=== PATIENT | male | born 1995 | race Caucasian/White ===

== ENCOUNTER 2020-06-26 12:31 | Emergency (ER) | payer OTHER ==
[~2020-06-26] VITALS: Ht 180.3 cm; Wt 65.8 kg
[~2020-06-26 12:31] MED LIST: HYDROCODON-ACE1 EAC7 PO; IBUPROFEN 800800 MG PO; NOHOMEMEDICATIONS; XANAX 0.25 MG0.25 MG PO
[2020-06-26] MEDS ORDERED: HYDROCODON-ACE1 EAC7 PO (18:00)
[2020-06-26] MEDS ORDERED: KEPPRA XR750 MG PO (18:00)
[2020-06-26 18:05] VITALS: BP 141/78
== END 2020-06-26 18:06 | disposition home or self-care (01) ==
LOC: ER 12:31
DX: S43.034A Inferior dislocation of right humerus, initial encounter (principal); R51.9 Headache, unspecified; Z79.899 Other long term (current) drug therapy; W19.XXXA Unspecified fall, initial encounter; Y93.89 Activity, other specified; Y92.89 Other specified places as the place of occurrence of the external cause; Y99.8 Other external cause status

== ENCOUNTER 2020-08-09 21:49 | Emergency (ER) | payer OTHER ==
[~2020-08-09] VITALS: Ht 180.3 cm; Wt 68.0 kg
[~2020-08-09 21:49] MED LIST changes: +KEPPRA XR750 MG PO
[2020-08-09 23:45] VITALS: BP 106/71
== END 2020-08-09 23:45 | disposition home or self-care (01) ==
LOC: ER 21:49
DX: M24.411 Recurrent dislocation, right shoulder (principal); Z79.899 Other long term (current) drug therapy; W06.XXXA Fall from bed, initial encounter; Y93.89 Activity, other specified; Y92.89 Other specified places as the place of occurrence of the external cause; Y99.8 Other external cause status

== ENCOUNTER 2020-09-04 07:49 | Emergency (ER) | payer OTHER ==
[~2020-09-04] VITALS: Ht 180.3 cm; Wt 68.0 kg
[2020-09-04] MEDS ORDERED: XANAX1 MG PO (07:59)
[2020-09-04] MEDS ORDERED: KEPPRA 500 MG500 MG PO (09:21)
[2020-09-04] MEDS ORDERED: NORCO5 PO (09:21)
[2020-09-04 09:25] VITALS: BP 144/98
== END 2020-09-04 09:25 | disposition home or self-care (01) ==
LOC: ER 07:49
DX: S43.004A Unspecified dislocation of right shoulder joint, initial encounter (principal); F17.210 Nicotine dependence, cigarettes, uncomplicated; Z79.899 Other long term (current) drug therapy; X58.XXXA Exposure to other specified factors, initial encounter; Y93.89 Activity, other specified; Y92.098 Other place in other non-institutional residence as the place of occurrence of the external cause; Y99.8 Other external cause status

== ENCOUNTER 2020-10-30 12:59 | Emergency (ER) | payer BC ==
[~2020-10-30] VITALS: Ht 177.8 cm; Wt 84.8 kg
[~2020-10-30 12:59] MED LIST changes: +KEPPRA 500 MG500 MG PO; +NORCO5 PO; +XANAX1 MG PO
[2020-10-30 13:20] VITALS: BP 124/98
[2020-10-30 18:31] VITALS: BP 139/92
--- NOTE | 2020-11-06 14:03 | O ---
[facility] [place] [address] OPERATIVE REPORT Name: LARISA POSADA Room #: DEP Jessica#: [id number] Admission: 10/30/20 Attend Phys: Discharge: 10/30/20 Date of : [birth year] Report #: [id number] THIS REPORT FOR: cc: ALYSSA - Genesis family physician/PCP ALYSSA - No family physician/PCP Lissa Goff MD ~ DOC #: [id number] Lissa Goff MD DATE OF SERVICE: 10/30/2020 PREOPERATIVE DIAGNOSIS: Right anterior inferior shoulder dislocation. POSTOPERATIVE DIAGNOSIS: Right anterior inferior shoulder dislocation. PROCEDURE PERFORMED: Closed reduction right shoulder dislocation. SURGEON: Dr. Lissa Goff. ANESTHESIA: General. ESTIMATED BLOOD LOSS: None. COMPLICATIONS: None. CONDITION: Stable. DISPOSITION: To recovery room. INDICATIONS: The patient is a 25-year-old male with the above-mentioned diagnosis. He elects for operative treatment. The risks, benefits, alternatives and complications were discussed including but not limited to instability, inability to perform a complete reduction, damage to blood vessels or nerves. Informed consent was obtained. The correct extremity was identified and labeled by myself after verbal confirmation with the patient as well as visual confirmation and signed informed consent. DESCRIPTION OF PROCEDURE: The patient was brought to the operating room and placed in a supine position. The patient was brought back to the operating room. After adequate anesthesia was obtained and the patient's muscles were relaxed, I was able to perform a closed reduction maneuver with abduction, internal and external rotation and forward elevation. I was able to hear and feel an audible and palpable clunk. X-ray was brought in, which showed concentrically reduced glenohumeral joint. AP showed excellent reduction. Shoulder was grossly stable. He was placed into a shoulder sling with an anterior pillow. All fingers were pink and brisk capillary refill close of the case. He tolerated the procedure well. The patient transferred to [address] [address] OPERATIVE REPORT Name: LARISA POSADA [id number] Admission: 10/30/20 Attend Phys: Discharge: 10/30/20 Date of : [birth year] Report #: [id number] postoperative recovery room in stable condition. Lissa Goff MD VAD/SAB <ELECTRONICALLY SIGNED> By: Lissa Goff MD 11/06/20 1403 1724 [id number] Lissa Goff MD /nt
--- NOTE | 2020-11-06 14:03 | HC ---
[facility] [place] [address] CONSULTATION Name: LARISA POSADA Room #: [facility] [id number] Admission: 10/30/20 Attend Phys: Discharge: 10/30/20 Date of : [birth year] Report #: [id number] THIS REPORT FOR: cc: FAM - No family physician/PCP FAM - No family physician/PCP Lissa Goff MD ~ DOC #: [id number] Lissa Goff MD DATE OF SERVICE: 10/30/2020 ORTHOPEDIC CONSULT NOTE REASON FOR CONSULTATION: Right shoulder dislocation, unreducible after multiple attempts by the ER physician. HISTORY OF PRESENT ILLNESS: The patient is a 25-year-old right hand dominant male who reports having a seizure and sustaining a shoulder dislocation. He has had multiple instances of the right shoulder dislocation approximately once every month for about 12 times per the patient, one of the more recent required reduction in the operating room. He reports pain in the right shoulder. No other injury. PAST MEDICAL HISTORY: Significant for epilepsy. ALLERGIES: No known drug allergies. PAST SURGICAL HISTORY: He has had 1-2 very minor surgical procedures. MEDICATIONS: Keppra. SOCIAL HISTORY: He drinks alcohol, smokes 2 cigarettes a day. Works in a warehouse, is right hand dominant, is . His just had their second child, was released from the hospital today. The patient is awake, alert and oriented x3. He has a female friend or family member at his bedside. PHYSICAL EXAMINATION: GENERAL: He is a well-developed, well-nourished male in mild distress secondary to pain in the right shoulder. VITAL SIGNS: Most recent vital signs show a heart rate of 75, respiration rate 19, blood pressure 144/89, pulse oximetry is 100% on 2 liters of nasal cannula. GENERAL: He is sitting in his hospital bed. MUSCULOSKELETAL: Examination of his right upper extremity shows anterior swelling in the shoulder with significant tenderness. He does have sensation at Sergeant's patch. I am able to feel and fire his deltoid, ____ is significantly painful. There is no tenderness to the elbow, forearm, wrist or hand. He is able to make full fist, full extension. Abduction and adduction is intact. [address] [address] CONSULTATION Name: LARISA POSADA ABI Room #: DEP Jessica#: [id number] Admission: 10/30/20 Attend Phys: Discharge: 10/30/20 Date of : [birth year] Report #: [id number] IMAGING STUDIES: AP, scapular Y, and axillary lateral view shows an anterior inferior glenohumeral joint dislocation with apparent Hill-Sachs and Bankart lesions. IMPRESSION AND PLAN: Right anterior inferior glenohumeral joint dislocation with bony deformities. This is recurrent. I discussed with him the most urgent importance for him to seek treatment for this. I spoke with my partner, ____ who is in clinic on Mondays and Tuesdays, and the patient should call and get an appointment. I discussed the recommendation for closed reduction today. The risks, benefits, alternatives and complications were discussed including but not limited to inability to reduce the fracture or being unstable, damage to blood vessels or nerves. Questions were encouraged and answered best to my ability. Informed consent was obtained. Please see a separate report for an operative note. MD DENIS Hamm/REBECCA/LAKEISHA <ELECTRONICALLY SIGNED> By: Lissa Goff MD 11/06/20 1403 1526 [id number] Lissa Goff MD /nt
== END 2020-10-30 17:21 | disposition home or self-care (01) ==
LOC: ER 12:59 → EROBS 17:04
DX: M24.411 Recurrent dislocation, right shoulder (principal); Z20.822 Contact with and (suspected) exposure to COVID-19; R56.9 Unspecified convulsions; F41.9 Anxiety disorder, unspecified; F17.210 Nicotine dependence, cigarettes, uncomplicated; Z79.899 Other long term (current) drug therapy
CPT/HCPCS: 50010; 50101; 62110; 62900; 70005

== ENCOUNTER 2020-11-02 08:32 | Emergency (ER) | payer BC ==
[~2020-11-02] VITALS: Ht 180.3 cm; Wt 68.0 kg
[2020-11-02] MEDS ORDERED: PERCOCET 5-3251 EACH PO (10:48)
[2020-11-02 11:05] VITALS: BP 122/87
== END 2020-11-02 11:05 | disposition home or self-care (01) ==
LOC: ER 08:32
DX: S43.014A Anterior dislocation of right humerus, initial encounter (principal); X58.XXXA Exposure to other specified factors, initial encounter; Y93.89 Activity, other specified; Y92.89 Other specified places as the place of occurrence of the external cause; Y99.8 Other external cause status

== ENCOUNTER 2020-11-05 05:08 | Emergency (ER) | payer BC ==
[~2020-11-05] VITALS: Ht 180.3 cm; Wt 68.0 kg
[~2020-11-05 05:08] MED LIST changes: +PERCOCET 5-3251 EACH PO
[2020-11-05 09:03] VITALS: BP 138/98
[2020-11-05] MEDS ORDERED: PERCOCET 5-3251 EACH PO (12:54)
== END 2020-11-05 08:45 | disposition home or self-care (01) ==
LOC: ER 05:08
DX: S43.004A Unspecified dislocation of right shoulder joint, initial encounter (principal); F17.200 Nicotine dependence, unspecified, uncomplicated; X50.0XXA Overexertion from strenuous movement or load, initial encounter; Y93.89 Activity, other specified; Y92.89 Other specified places as the place of occurrence of the external cause; Y99.8 Other external cause status

== ENCOUNTER 2020-11-28 04:32 | Emergency (ER) | payer BC ==
[~2020-11-28] VITALS: Ht 180.3 cm; Wt 68.0 kg
[2020-11-28 08:21] VITALS: BP 122/86
== END 2020-11-28 08:15 | disposition home or self-care (01) ==
LOC: ER 04:32
DX: S43.014A Anterior dislocation of right humerus, initial encounter (principal); X58.XXXA Exposure to other specified factors, initial encounter; Y93.89 Activity, other specified; Y92.89 Other specified places as the place of occurrence of the external cause; Y99.8 Other external cause status

== ENCOUNTER 2020-12-03 00:29 | Emergency (ER) | payer BC ==
[~2020-12-03] VITALS: Ht 180.3 cm; Wt 68.0 kg
[2020-12-03] MEDS ORDERED: PERCOCET 5-3251 EACH PO (02:06)
[2020-12-03 02:37] VITALS: BP 123/88
== END 2020-12-03 03:30 | disposition home or self-care (01) ==
LOC: ER 00:29
DX: S43.014A Anterior dislocation of right humerus, initial encounter (principal); X50.9XXA Other and unspecified overexertion or strenuous movements or postures, initial encounter; Y93.89 Activity, other specified; Y92.89 Other specified places as the place of occurrence of the external cause; Y99.8 Other external cause status

== ENCOUNTER 2020-12-06 05:12 | Emergency (ER) | payer BC ==
[~2020-12-06] VITALS: Ht 180.3 cm; Wt 68.0 kg
[2020-12-06] MEDS ORDERED: PERCOCET 5-3251 EACH PO (07:03)
[2020-12-06 08:21] VITALS: BP 140/88
== END 2020-12-06 08:23 | disposition home or self-care (01) ==
LOC: ER 05:12
DX: M24.411 Recurrent dislocation, right shoulder (principal); F12.90 Cannabis use, unspecified, uncomplicated; X50.1XXA Overexertion from prolonged static or awkward postures, initial encounter; Y93.89 Activity, other specified; Y92.89 Other specified places as the place of occurrence of the external cause; Y99.9 Unspecified external cause status

== ENCOUNTER 2021-01-07 09:15 | Emergency (ER) | payer OTHER ==
[~2021-01-07] VITALS: Ht 180.3 cm; Wt 68.0 kg
[2021-01-07] MEDS ORDERED: PERCOCET 5-3251 EACH PO (11:09)
[2021-01-07 11:52] VITALS: BP 135/85
== END 2021-01-07 11:52 | disposition home or self-care (01) ==
LOC: ER 09:15
DX: M24.411 Recurrent dislocation, right shoulder (principal); Z98.890 Other specified postprocedural states; Z79.891 Long term (current) use of opiate analgesic; Z79.899 Other long term (current) drug therapy; Z87.891 Personal history of nicotine dependence

== ENCOUNTER 2021-01-22 18:37 | Emergency (ER) | payer OTHER ==
[~2021-01-22] VITALS: Ht 180.3 cm; Wt 68.0 kg
[2021-01-22 22:35] VITALS: BP 136/89
== END 2021-01-22 23:04 | disposition home or self-care (01) ==
LOC: ER 18:37
DX: S43.004A Unspecified dislocation of right shoulder joint, initial encounter (principal); F17.210 Nicotine dependence, cigarettes, uncomplicated; X58.XXXA Exposure to other specified factors, initial encounter; Y93.89 Activity, other specified; Y92.89 Other specified places as the place of occurrence of the external cause; Y99.8 Other external cause status

== ENCOUNTER 2021-01-27 01:18 | Emergency (ER) | payer OTHER ==
[~2021-01-27] VITALS: Ht 180.3 cm; Wt 68.0 kg
[2021-01-27 04:38] VITALS: BP 134/87
== END 2021-01-27 05:19 | disposition home or self-care (01) ==
LOC: ER 01:18
DX: M24.411 Recurrent dislocation, right shoulder (principal); Z87.891 Personal history of nicotine dependence; Z79.899 Other long term (current) drug therapy

== ENCOUNTER 2021-02-15 01:21 | Emergency (ER) | payer OTHER ==
[~2021-02-15] VITALS: Ht 180.3 cm; Wt 68.0 kg
[2021-02-15 03:54] VITALS: BP 114/80
== END 2021-02-15 03:55 | disposition home or self-care (01) ==
LOC: ER 01:21
DX: S43.004A Unspecified dislocation of right shoulder joint, initial encounter (principal); Z79.899 Other long term (current) drug therapy; Z87.891 Personal history of nicotine dependence; X58.XXXA Exposure to other specified factors, initial encounter; Y93.89 Activity, other specified; Y99.8 Other external cause status

== ENCOUNTER 2021-03-09 15:43 | Emergency (ER) | payer OTHER ==
[~2021-03-09] VITALS: Ht 180.3 cm; Wt 68.0 kg
[2021-03-09 21:35] VITALS: BP 125/94
== END 2021-03-09 21:35 | disposition home or self-care (01) ==
LOC: ER 15:43
DX: M24.411 Recurrent dislocation, right shoulder (principal); Z79.899 Other long term (current) drug therapy; Z87.891 Personal history of nicotine dependence

== ENCOUNTER 2021-03-11 13:39 | Emergency (ER) | payer OTHER ==
[~2021-03-11] VITALS: Ht 180.3 cm; Wt 74.8 kg
[2021-03-11 17:40] VITALS: BP 120/76
== END 2021-03-11 17:40 | disposition home or self-care (01) ==
LOC: ER 13:39
DX: M24.411 Recurrent dislocation, right shoulder (principal); G40.909 Epilepsy, unspecified, not intractable, without status epilepticus; Z79.899 Other long term (current) drug therapy; Z79.891 Long term (current) use of opiate analgesic; Z87.891 Personal history of nicotine dependence

== ENCOUNTER 2021-04-11 05:15 | Emergency (ER) | payer OTHER ==
[~2021-04-11] VITALS: Ht 180.3 cm; Wt 70.3 kg
[2021-04-11] MEDS ORDERED: NAPROSYN500 MG PO (07:07)
[2021-04-11 07:41] VITALS: BP 132/100
== END 2021-04-11 07:45 | disposition home or self-care (01) ==
LOC: ER 05:15
DX: M24.411 Recurrent dislocation, right shoulder (principal); Z79.891 Long term (current) use of opiate analgesic; Z79.899 Other long term (current) drug therapy; Z87.891 Personal history of nicotine dependence

== ENCOUNTER 2021-05-22 04:49 | Emergency (ER) | payer OTHER ==
[~2021-05-22] VITALS: Ht 180.3 cm; Wt 68.0 kg
[~2021-05-22 04:49] MED LIST changes: +NAPROSYN500 MG PO
[2021-05-22 06:20] VITALS: BP 121/52
== END 2021-05-22 06:25 | disposition home or self-care (01) ==
LOC: ER 04:49
DX: M24.411 Recurrent dislocation, right shoulder (principal); G40.909 Epilepsy, unspecified, not intractable, without status epilepticus; F12.90 Cannabis use, unspecified, uncomplicated; Z98.890 Other specified postprocedural states; Z79.891 Long term (current) use of opiate analgesic; Z79.899 Other long term (current) drug therapy; Z87.891 Personal history of nicotine dependence